=== PATIENT | female | born 1985 | race Caucasian/White ===

== ENCOUNTER 2024-05-31 11:03 | Emergency (ER) | payer BC ==
--- OUTSIDE RECORDS SUMMARY | 2024-05-31 11:07 | XMS REPORT | Continuity of Care Document ---
Author Name Unknown Address [address] [place], [place] [id number] [facility] [place] Address [address] [facility] [address] [place] [address] Care Team Providers Care Survey Crew Chief Name Role Phone [email or web address]_S Attending Clinician Unavaila ble [email or web address]_S Admitting Clinician Unavaila ble Problems Condition Name Condition Details Condition Category Status Onset Date Resolution Date Last Treatment Date Treating Clinician Comments Source Premenstru al dysphoric disorder Premenstru al Dysphoric Disorder Problem Active 1-15 00:00: 00 [facility] Abnormal uterine bleeding Abnormal Uterine Bleeding Problem Active 2023-03 2-19 00:00: 00 [facility] Excessive menstruati on with irregular cycle Excessive Menstruati on with Irregular Cycle Problem Active 2023-03 0-17 00:00: 00 [facility] Acute vaginitis Acute Vaginitis Problem Active 2023-03 0-03 00:00: 00 [facility] Excessive and frequent menstruati on Excessive and Frequent Menstruati on Problem Active 2023-03 0-03 00:00: 00 [facility] Social History Smoking Status Start Date Stop Date Source Former Smoker [facility] Medications Ordered Medication Name Filled Medication Name Start Date Stop Date Current Medication? Ordering Clinician Indication Dosage Frequency Signature (SIG) Comments Components Source collagen (bovine) collagen (bovine) No collagen (bovine) [facility] magnesium magnesium No magnesium [facility] multivitami n multivitami n No multivitam in [facility] propranolol 10 mg tablet PRN propranolol 10 mg tablet PRN No propranolo l 10 mg tablet PRN [facility] fluoxetine 10 mg capsule 1 capsule daily by mouth, and 2 capsules daily during luteal phase of cycle fluoxetine 10 mg capsule 1 capsule daily by mouth, and 2 capsules daily during luteal phase of cycle No fluoxetine 10 mg capsule 1 capsule daily by mouth, and 2 capsules daily during luteal phase of cycle [facility] Vital Signs Vital Name Observation Time Observation Value Comments S ource BP Diastolic 2024-04-10 00:00:00 71 mm[Hg] [facility] BP Systolic 2024-04-10 00:00:00 125 mm[Hg] [facility] Body Weight 2024-04-10 00:00:00 176 [lb_av] [facility] Height 2024-04-10 00:00:00 66 [in_i] [facility] BMI (Body Mass Index) 2024-04-10 00:00:00 28.4 kg/m2 [facility] BP Diastolic 2024-03-15 00:00:00 88 mm[Hg] [facility] Height 2024-03-15 00:00:00 66 [in_i] [facility] BMI (Body Mass Index) 2024-03-15 00:00:00 28.4 kg/m2 [facility] Body Weight 2024-03-15 00:00:00 176 [lb_av] [facility] BP Systolic 2024-03-15 00:00:00 138 mm[Hg] [facility] BP Systolic 2023-12-28 00:00:00 122 mm[Hg] [facility] BP Diastolic 2023-12-28 00:00:00 75 mm[Hg] [facility] Height 2023-12-28 00:00:00 66 [in_i] [facility] Body Weight 2023-12-28 00:00:00 176 [lb_av] [facility] BMI (Body Mass Index) 2023-12-28 00:00:00 28.4 kg/m2 [facility] Procedures Procedure Date / Time Performed Performing Clinicia n Source Hysteroscopy Biopsy 2024-03-15 00:00:00 [facility] US TRANSVAGINAL 2024-01-05 00:00:00 [facility] MAMMO, screening, digital, bilateral 2023-12-28 00:00:00 [facility] Encounters Start Date/Time End Date/Time Encounter Type Admission Type Attending Clinicians Care Facility Care Department Encounter ID Source 2024-04-10 00:00:00 2024-04-10 00:00:00 Roshni Perkins, WORKERS COMPENSATION CONSULTANT: [address], [place] [address] , Ph. [facility] - GC_GCBZW_Agnes Lawler* [id number] [facility] 2024-03-15 00:00:00 2024-03-15 00:00:00 Marley Johnson MD: [address], [place] [phone] , Ph. [facility] - GC_GCBZW_Agnes sarabia Bucky* [id number] [facility] 2024-01-11 00:00:00 2024-01-11 00:00:00 Roshni Perkins WORKERS COMPENSATION CONSULTANT: [address], [place] [phone] , Ph. [facility] - GC_GCBZW_Agnes no Lawler* [id number] [facility] 2024-01-05 00:00:00 2024-01-05 00:00:00 Marley Johnson MD: [address], [place] [phone] , Ph. [facility] - GC_GCBZW_Agnes no Bucky* [id number] [facility] 2023-12-28 00:00:00 2023-12-28 00:00:00 FLOR[place] MurphyP: [address], [place] [phone] , Ph. [facility] - GC_GCBZW_Agnes Lawler* [id number] [facility] 2023-01-21 00:00:00 2023-01-21 00:00:00 Outpatient GC_GCBZW_Ka diyala_S [facility] [id number] [facility] 2023 00:00:00 2023 00:00:00 Outpatient GC_GCBZW_Ka diyala_S [facility] [id number] [facility] Results Test Description Test Time Test Comments Results Result Co mments Source [facility]Units/volume] in Serum or [id number] 00:00:00* Test Item Value Reference Range Interpretation Comme nts FSH (test code = FSH) 5.1 mIU/mL [facility]E2) [Mass/volume] in Serum or [id number] 00:00:00 * Test Item Value Reference Range Interpretation Comme nts estradiol (test code = estradiol) 106.0 pg/mL 6.1-91.9 H [facility]
[2024-05-31] MEDS ORDERED: ONDANSETRON 4 MG/2 ML VIAL ONE (11:24)
[2024-05-31] MEDS ORDERED: MORPHINE 4 MG/ML SYR ONE (11:25)
[2024-05-31] MEDS ORDERED: NA CHLORIDE 0.9% 1,000 ML ONE (11:25)
[2024-05-31 11:47] LABS: Absolute Eosinophils 0.1 K/uL (0-0.5); Absolute Lymphocytes (CBC) 1.1 K/uL (0.7-4.9); Absolute Monocytes 0.4 K/uL (0.1-1.3); Basophils % 0.4 % (0-1.3); Eosinophils % 0.9 % (0-4.4); Hematocrit 27.4 % (36.0-45.0); Hemoglobin 9.1 g/dL (12.0-15.0); Lymphocytes % 11.2 % (15.3-44.8); MCHC 33.1 g/dL (32.0-36.0); MCV 78.7 fL (80-100); MPV 8.1 fL (7.6-11.3); Monocytes % 4.3 % (3.3-12.3); Neutrophils % 83.2 % (41.7-73.7); Platelets 317 thou/uL (152-406); RBC Red Blood Cell Count 3.48 M/uL (3.86-4.86); Red Cell Distribution Width 16.7 % (12.1-15.2)
[2024-05-31 11:56] LABS: Albumin 3.8 g/dL (3.4-5.0); Anion Gap 15.4 mEq/L (5.0-15.0); Bilirubin Total 0.6 mg/dL (0.2-1.0); Globulin 3.7 g/dL (2.3-3.5); Potassium 3.4 mEq/L (3.5-5.1); Protein, Total 7.5 g/dL (6.4-8.2)
--- NOTE | 2024-05-31 12:14 | RAD REPORT ---
EXAMINATION: CT ABDOMEN AND PELVIS WITHOUT CONTRAST CLINICAL INDICATION: Abdominal pain TECHNIQUE: CT abdomen and pelvis was performed, as per department protocol. IV contrast and oral was not administered.Axial, sagittal and coronal reconstructions were obtained. One or more of the following dose reduction techniques were used: Automated exposure control, adjustment of the mA and/o r kV according to the patient size, and/or iterative reconstruction. Unless otherwise specified, incidental findings do not require dedicated imaging follow-up. [id number]. COMPARISON: No prior exam. FINDINGS: The lack of intravenous and oral contrast limits evaluation of solid organs, vessels and bowel. The liver, spleen, pancreas, adrenals and kidneys appear grossly normal No evidence of diverticulitis Normal appendix 4 cm mass abuts the left aspect of the uterus. Small umbilical hernia IMPRESSION: 4 cm mass abuts the left aspect of the uterus. Most likely this represents a subserosal fibroid. An o varian mass can have a similar appearance. Pelvic ultrasound is recommended for confirmation.
--- NOTE | 2024-05-31 12:52 | ER ---
Nurse's Notes [facility] Name: Bharti Garduno Age: 39 yrs Sex: Female : 1985 Arrival Date: 05/31/2024 Time: 11:03 Bed 7 Private MD: Diagnosis: Pelvic and perineal pain Presentation: 05/31 11:17 Chief complaint: Patient states: Had ablation with Dr. Johnson this morning. Severe ll1 pelvic pain since, released in extreme pain. Coronavirus screen: Client denies travel out of the [place] in the last 14 days. At this time, the client does not indicate any symptoms associated with coronavirus-19. Ebola Screen: Patient denies travel to an Ebola-affected area in the 21 days before illness onset. Initial Sepsis Screen: Does the patient meet any 2 criteria? No. Patient's initial sepsis screen is negative. Does the patient have a suspected source of infection? No. Patient's initial sepsis screen is negative. Risk Assessment: Do you want to hurt yourself or someone else? Patient reports no desire to harm self or others. Onset of symptoms was May 31, 2024. 11:17 Method Of Arrival: Ambulatory ll1 11:17 Acuity: SCOOBY 2 ll1 Historical: - Allergies: 11:17 No Known Allergies; ll1 - PMHx: 11:17 None; ll1 - PSHx: 11:13 ablation; ll1 - Immunization history:: Adult Immunizations up to date. - Social history:: Smoking status: Patient denies any tobacco usage or history of. Screenin:11 [facility] ED Fall Risk Assessment (Adult) History of falling in the last 3 months, iw including since admission No falls in past 3 months (0 pts) Confusion or Disorientation No (0 pts) Intoxicated or Sedated No (0 pts) Impaired Gait No (0 pts) Mobility Assist Device Used No (0 pt) Altered Elimination No (0 pt) Score/Fall Risk Level 0 - 2 = Low Risk. Abuse screen: Denies threats or abuse. Denies injuries from another. Nutritional screening: No deficits noted. Tuberculosis screening: No symptoms or risk factors identified. Assessment: 11:35 General: Appears uncomfortable, Behavior is agitated, restless. Pain: Complains of pain iw in pelvis Pain currently is 10 out of 10 on a pain scale. Neuro: Level of Consciousness is awake, alert, obeys commands, Oriented to person, place, time, situation. Respiratory: Respiratory effort is even, unlabored, Respiratory pattern is regular, symmetrical. GI: Reports lower abdominal pain, nausea, vomiting. : Denies vaginal bleeding. Vital Signs: 11:17 BP 106 / 93; Pulse 60; Resp 28; Temp 98; Pulse Ox 100% ; Weight 79.38 kg; Height 5 ft. ll1 6 in. ; Pain 10; 11:17 Body Mass Index 28.25 (79.38 kg, 167.64 cm) ll1 11:17 Pain Scale: Adult ll1 ED Course: 11:03 Patient arrived in ED. im 11:10 Fredy Vila, RN is Primary Nurse. bp 11:13 Arm band placed on. ll1 11:14 Olga Fernandez MD is Attending Physician. gb1 11:18 Triage completed. ll1 11:54 CT Abd/Pelvis - Without Contrast In Process Unspecified. EDMS Administered Medications: 11:31 Drug: Ondansetron IVP 4 mg IVP once; over 2 minutes Route: IVP; Site: left antecubital; iw 13:11 Follow up: Response: No adverse reaction iw 11:31 Drug: morphine IVP or IV 4 mg IVP once over 4 mins Route: IVP; Infused Over: 4 mins; iw Site: left antecubital; 12:00 Follow up: Response: No adverse reaction; Pain is decreased iw 11:31 Drug: NS 0.9% IV 1000 ml IV at 1 bolus Per protocol; to be given as a bolus over 60 iw minutes Route: IV; Rate: 1 bolus; Site: left antecubital; 12:45 Follow up: IV Status: Completed infusion iw 13:00 Drug: HYDROcodone-acetaminophen PO 5 mg-325 mg 1 tabs PO once Route: PO; iw 13:11 Follow up: Response: No adverse reaction iw 13:00 Drug: Ketorolac IVP 30 mg IVP once Route: IVP; Site: left antecubital; iw 13:11 Follow up: Response: No adverse reaction iw Outcome: 12:51 Discharge ordered by . gb1 13:10 Discharged to home via wheelchair, with family, iw 13:10 Condition: good 13:10 Discharge instructions given to patient, family, Instructed on discharge instructions, follow up and referral plans. Demonstrated understanding of instructions, follow-up care, 13:11 Patient left the ED. iw Signatures: Dispatcher [employer] Crystal Patricia RN RN iw Fredy Vila RN RN bp Lewis, Lynsay, RN RN ll1 Maryann Alvarez Gina, MD MD gb1
--- NOTE | 2024-05-31 12:52 | EDPHYS ---
Physician Documentation [facility] Name: Bharti Garduno Age: 39 yrs Sex: Female : 1985 Arrival Date: 05/31/2024 Time: 11:03 Bed 7 Private MD: ED Physician Olga Fernandez HPI: 05/31 12:57 This 39 yrs old Female presents to ER via Ambulatory with complaints of Post gb1 Surgical Pain. 12:57 Ms. Garduno is a 39-year-old female that recently today just prior to arrival gb and had a uterine ablation for dysfunctional uterine bleeding. She also has a history of a uterine fibroid. I discussed the case with the operating front man to do the procedure and she stated to me that there were no complications during or after the procedure. Patient was discharged home from the clinic where she had the procedure done and got home and was in a lot of pain she attempted to go to the pharmacy to get her pain medicine but the pharmacy did not stock the pain medicine that was prescribed to her. She states that she has crampy pain and its sharp in nature in her pelvis.. Historical: - Allergies: 11:17 No Known Allergies; ll1 - PMHx: 11:17 None; ll1 - PSHx: 11:13 ablation; ll1 - Immunization history:: Adult Immunizations up to date. - Social history:: Smoking status: Patient denies any tobacco usage or history of. Exam: 12:57 Constitutional: This is a well developed, well nourished patient who is awake, alert, gb1 and in no acute distress. Head/Face: Normocephalic, atraumatic. Eyes: Pupils equal round and reactive to light, extra-ocular motions intact. Lids and lashes normal. Conjunctiva and sclera are non-icteric and not injected. Cornea within normal limits. Periorbital areas with no swelling, redness, or edema. ENT: Nares patent. No nasal discharge, no septal abnormalities noted. Tympanic membranes are normal and external auditory canals are clear. Oropharynx with no redness, swelling, or masses, exudates, or evidence of obstruction, uvula midline. Mucous membranes moist. Neck: Trachea midline, no thyromegaly or masses palpated, and no cervical lymphadenopathy. Supple, full range of motion without nuchal rigidity, or vertebral point tenderness. No Meningismus. Chest/axilla: Normal chest wall appearance and motion. Nontender with no deformity. No lesions are appreciated. Cardiovascular: Regular rate and rhythm with a normal S1 and S2. No gallops, murmurs, or rubs. Normal PMI, no JVD. No pulse deficits. Respiratory: Lungs have equal breath sounds bilaterally, clear to auscultation and percussion. No rales, rhonchi or wheezes noted. No increased work of breathing, no retractions or nasal flaring. Abdomen/GI: Soft, generally tender , more tender in the pelvic region anteriorly. No lateralizing tenderness., with normal bowel sounds. No distension or tympany. No guarding or rebound. No evidence of tenderness throughout. Back: No spinal tenderness. No costovertebral tenderness. Full range of motion. Skin: Warm, dry with normal turgor. Normal color with no rashes, no lesions, and no evidence of cellulitis. MS/ Extremity: Pulses equal, no cyanosis. Neurovascular intact. Full, normal range of motion. Vital Signs: 11:17 BP 106 / 93; Pulse 60; Resp 28; Temp 98; Pulse Ox 100% ; Weight 79.38 kg; Height 5 ft. ll1 6 in. ; Pain 10/10; 11:17 Body Mass Index 28.25 (79.38 kg, 167.64 cm) ll1 11:17 Pain Scale: Adult ll1 MDM: 11:14 Medical Screening Exam initiated gb1 12:57 Data reviewed: vital signs, nurses notes, lab test result(s), radiologic studies, CT gb1 scan. ED course: 39-year-old female status post a uterine ablation today here with intermittent crampy pelvic pain. CT of the abdomen and pelvis did not show any free air or any signs of perforation. Does show a uterine fibroid but otherwise patient does not have any uterine bleeding or any signs of hemorrhage. I did prescribe medications for pain control and give her IV fluids I discussed the case with the patient's operating front man that performed the procedure of the ablation and updated her with the plan of care for discharge. Patient does not have any reason at this time to be admitted to the hospital or having an emergent gynecological evaluation.. 05/31 11:18 Order name: CBC with Diff; Complete Time: 12:07 gb1 05/31 11:18 Order name: CMP; Complete Time: 12:07 gb1 05/31 11:18 Order name: Lipase; Complete Time: 12: gb1 05/31 11:18 Order name: CT Abd/Pelvis - Without Contrast; Complete Time: 12:27 gb1 05/31 11:18 Order name: IV Saline Lock; Complete Time: 11: gb1 05/31 11:18 Order name: Labs collected and sent; Complete Time: : gb Administered Medications: 11:31 Drug: Ondansetron IVP 4 mg IVP once; over 2 minutes Route: IVP; Site: left antecubital; iw 13:11 Follow up: Response: No adverse reaction iw 11:31 Drug: morphine IVP or IV 4 mg IVP once over 4 mins Route: IVP; Infused Over: 4 mins; iw Site: left antecubital; 12:00 Follow up: Response: No adverse reaction; Pain is decreased iw 11:31 Drug: NS 0.9% IV 1000 ml IV at 1 bolus Per protocol; to be given as a bolus over 60 iw minutes Route: IV; Rate: 1 bolus; Site: left antecubital; 12:45 Follow up: IV Status: Completed infusion iw 13:00 Drug: HYDROcodone-acetaminophen PO 5 mg-325 mg 1 tabs PO once Route: PO; iw 13:11 Follow up: Response: No adverse reaction iw 13:00 Drug: Ketorolac IVP 30 mg IVP once Route: IVP; Site: left antecubital; iw 13:11 Follow up: Response: No adverse reaction iw Disposition Summary: 05/31/24 12:51 Discharge Ordered Notes: Location: Home gb1 Problem: new gb1 Symptoms: have improved gb1 Condition: Stable gb1 Diagnosis - Pelvic and perineal pain gb1 Followup: gb1 - With: Private Physician - When: - Reason: Recheck today's complaints Discharge Instructions: - Discharge Summary Sheet gb1 - Pelvic Pain, Female gb1 Forms: - Medication Reconciliation Form gb1 - Antibiotic Education gb1 - Prescription Opioid Use gb1 - Patient Portal Instructions gb1 - Leadership Thank You Letter gb1 Signatures: Dispatcher [employer] Crystal Patricia RN RN iw Mallory Delcid RN RN ll1 Blocker, Gina, MD MD gb1
[2024-05-31] MEDS ORDERED: KETOROLAC 30 MG/ML INJ ONE (12:57)
[2024-05-31] MEDS ORDERED: HYDROCODONE/APAP 5/325 MG TAB ONE (12:57)
[2024-05-31 13:15] VITALS: BP 106/93; TEMP 98; O2SAT 100
== END 2024-05-31 13:11 | disposition home or self-care (01) ==
LOC: ER 11:03
DX: R10.2 Pelvic and perineal pain (principal); Z98.890 Other specified postprocedural states
CPT/HCPCS: 96361; 85025; 36415; 83690; 80053; 74176; 96375; 96374; 99284; J2405; J7030